=== PATIENT | male | born 1955 | race Two or more races ===

== ENCOUNTER → 2017-06-09 | Outpatient (CLI) | payer OTHER ==
[~2017-06-09] MED LIST: ASPI81TA3 PO; HYDR25TA6 PO
--- NOTE | 2017-06-09 16:29 | RADRPT ---
PROCEDURE: XR Knee. CLINICAL INDICATION: Left knee pain. TECHNIQUE: AP, lateral and oblique views of the left knee were obtained. The images reviewed on a PACS workstation. COMPARISON: None. FINDINGS: The bones appear intact, with no evidence of fracture, erosion, demineralization, or dislocation. T he alignment of the femorotibial and patellofemoral joints appears normal. No joint space narrowing is seen. No evidence of a joint effusion is seen. No soft tissue swelling is present. IMPRESSION: Unremarkable examination of the left knee. RPTAT: HPNM Physician Ibeth Date Time Electronically viewed and signed by Physician Ibeth on 06/09/2017 16:29 /
--- NOTE | 2017-06-09 21:30 | HKNOTE ---
DATE OF SERVICE: 06/09/2017 CHIEF COMPLAINT: Left knee pain. HISTORY OF PRESENT ILLNESS: This is a 61-year-old male who is complaining of pain in the left knee. He denies any history of trauma. He states that the pain is on the inside of the knee. He has oc casional locking and catching. He denies any instability. He has not had any previous treatment. He does not take any pain medications. He denies any groin or back pain. He has no other complaint s. GAIT: Nonantalgic gait, reciprocal gait pattern. LEFT KNEE EXAMINATION: Neutral alignment. Tender over the medial joint line, nontender over the la teral joint line. Negative Meeta, negative anterior drawer, negative posterior drawer. Positive Von's medially. MOTOR STRENGTH: 5/5 hamstrings, quadriceps, tibialis anterior, gastrocsoleus. IMAGING: MRI, left knee: There is a horizontal tear of the posterior horn and body of the medial m eniscus with associated meniscus cyst. The cruciate and collateral ligaments are intact. There is no tear identified in the lateral meniscus. IMPRESSION: A 61-year-old male with a left knee posterior horn medial meniscus tear. PLAN: We will request authorization for physical therapy of the left knee. He can take ibuprofen f or pain control. He will follow up with me as needed. Dictated By: PATT SAMUEL/EVELYNE Conf#: [id number] DID#: [id number]
== END | disposition home or self-care (01) ==
LOC: HKI 15:21
PROVIDERS: ATTEND Orthopaedic Surgery Adult Reconstructive Orthopaedic Surgery
DX: M23.222 Derangement of posterior horn of medial meniscus due to old tear or injury, left knee (principal)
CPT/HCPCS: 73564; Z7500; G0463

== ENCOUNTER 2018-12-13 15:14 | Emergency (ER) | payer MEDICARE, OTHER ==
[~2018-12-13] VITALS: Ht 165.1 cm; Wt 81.4 kg
[~2018-12-13 15:14] MED LIST changes: +ASPI-903 PO; -ASPI81TA3 PO
[2018-12-13 15:21] VITALS: BP 169/95; PULSE 71; RESP 18; Ht 165.1 cm; Wt 81.4 kg
[2018-12-13] MEDS ORDERED: ACETAMINOPHEN 500 MG TAB PO STA (15:33)
--- NOTE | 2018-12-13 15:39 | ERD ---
ER Documentation Chief Complaint Chief Complaint right thumb pain/injury , right ear pain HPI Patient is a 63-year-old male, past medical history of hypertension, presents the ER for concerns of right thumb pain/injury and right ear pain. Patient states yesterday he slammed his finger in the car door. His concern is that may be fractured. He is right-hand dominant. Patient denies any fevers or chills. Patient denies any numbness or tingling. Patient has also had intermittent right ear pain for the last 4 to 5 days. Patient denies any bleeding or drainage. ROS All systems reviewed and are negative except as per history of present illness. Medications Home Meds Active Scripts Ibuprofen* (Motrin*) 600 Mg Tab, 600 MG PO Q6, #30 TAB Prov:ROEL ORELLANA PA-C 12/13/18 Amoxicillin* (Amoxicillin*) 500 Mg Cap, 500 MG PO BID for 7 Days, CAP Prov:ROEL ORELLANA PA-C 12/13/18 Reported Medications Hydrochlorothiazide* (Hydrochlorothiazide*) 25 Mg Tab, 25 MG PO DAILY, TAB 03/18/15 Aspirin* (Aspirin* Chew) 81 Mg Tab.chew, 81 MG PO DAILY, TAB.CHEW 03/18/15 Allergies Allergies: Coded Allergies: No Known Allergy (Unverified , 03/18/15) PMhx/Soc History of Surgery: No Anesthesia Reaction: No Hx Neurological Disorder: No Hx Respiratory Disorders: No Hx Cardiac Disorders: Yes (HTN) Hx Psychiatric Problems: No Hx Miscellaneous Medical Probl: No Hx Alcohol Use: No Hx Substance Use: No Hx Tobacco Use: No FmHx Family History: No diabetes Physical Exam Vitals Vital Signs Date Temp Pulse Resp B/P (MAP) Pulse Ox O2 O2 Flow FiO2 Time Delivery Rate 12/13/18 98.0 71 18 169/95 95 15:21 (119) Physical Exam GENERAL: Well-developed, well-nourished male. Appears in no acute distress. Speaking in full sentences. HEAD: Normocephalic, atraumatic. EYES: Pupils are equally reactive bilaterally. EOMs grossly intact. No conjunctival erythema. ENT: Right TM appears erythematous, nonbulging. No mastoid tenderness noted bilaterally. Left TM appears normal. Moist mucous membranes. No uvula deviation. No kissing tonsils. NECK: Supple. No meningismus. Normal range of motion of the neck. LUNG: Clear to auscultation bilaterally. No rhonchi, wheezing, rales or coarse breath sounds. HEART: Regular rate and rhythm. No murmurs, rubs or gallops. EXTREMITIES: Equal pulses bilaterally. No peripheral clubbing, cyanosis or edema. No unilateral leg swelling. NEUROLOGIC: Alert and oriented. Moving all four extremities without any difficulty. Normal speech. Steady gait. SKIN: Parital Subungual hematoma noted to the right thumb. R thumb: Able to bend at ITP joint without any difficulty. Normal pulses. Results 24 hrs Current Medications Medications Dose Sig/Adriana Start Time Status Last (Trade) Ordered Route PRN Stop Time Admin Dose Reason Admin 1,000 mg ONCE STAT 12/13/18 DC 12/13/18 Acetaminophen PO 15:33 15:41 (Tylenol 12/13/18 15:34 Tab) Procedures/MDM ED COURSE: The patient was stable throughout ED course. I kept the patient and/or family informed of laboratory and diagnostic imaging results throughout the ED course. DIAGNOSTIC IMAGING: Read by radiologist. Patient: HELADIO MEZA : 1955 Age: 63 Sex: M MR #: [id number] DOS: 12/13/18 1533 Ordering MD: ROEL ORELLANA PA-C Location: [facility] Room/Bed: PROCEDURE: XR Finger. CLINICAL INDICATION: right thumb pain TECHNIQUE: Three views of the right thumb finger. COMPARISON: None. FINDINGS: No evidence of acute fracture or dislocation. Mild to moderate arthrosis at the thumb carpometacarpal and MCP joints with joint space narrowing and marginal osteophyte formation. Soft tissue swelling without foreign body. IMPRESSION: Soft tissue swelling without evidence of acute fracture. Mild to moderate degenerative joint disease. RPTAT:AAJJ Physician Adam Date Time Electronically viewed and signed by Physician Adam on 12/13/2018 15:58 RF/ CC: ROEL ORELLANA PA-C [id number] PROCEDURES: NAIL TREPANATION: The patient was verbally consented prior to procedure. Patient was explained the risks, benefits and alternatives to this procedure. Location: R thumb Preparation: The area was prepped in a sterile fashion using betadine x3 cleanses. A sterile field was prepared. Technique: Using hot cautery device, a small hole was placed on the nail plate. Dark red blood was evacuated from site. The patient tolerated the procedure well with no complications. The wound was dressed in sterile gauze. The patient was neurovascularly intact post-procedure. Post-procedural wound care was discussed with the patient. MEDICATIONS GIVEN: Tylenol Patient tolerated medication well with no adverse reactions. Patient reported improvement in pain. MEDICAL DECISION MAKING: Patient is a 63-year-old male with past medical history of hypertension presents the ER for concerns of right thumb injury as well as right ear pain.. Vital signs were reviewed. Patient is afebrile. Patient was not hypoxic. Patient was hemodynamically stable. On exam, patient is noted to have a partial subungual hematoma. Using hot cautery device, nail trephination was performed. See procedure note above. X- ray imaging was negative for acute fracture dislocation to the right thumb. Patient was also reporting ear pain. Patient will be discharged home with pre scription for amoxicillin for concerns of otitis media. Low suspicion for deep space infection, cellulitis, mastoiditis, TM rupture. Patient was nontoxic, [id number] prior to discharge. PRESCRIPTION: Amoxicillin, ibuprofen DISCHARGE: At this time, patient is stable for discharge and outpatient management. I have instructed the patient to follow-up with his/her primary care physician in 1-2 days. I have discussed with the patient the possibility of needing to see a specialist for further workup and imaging studies if symptoms persist. I have instructed the patient to promptly return to the ER for any new or worsening symptoms including increased pain, fever, nausea, vomiting, weakness or LOC. The patient and/or family expressed understanding of and agreement with this plan. All questions were answered. Home care instructions were provided. Patients blood pressure was elevated (>120/80) but appears stable without evidence of hypertensive emergency, hypertensive urgency or end-organ failure. I had discussion with the patient about the risks of hypertension. I have advised the patient to follow up with his/her primary care physician for outpatient monitoring and treatment for hypertension in 2-3 days. I have instructed the patient to return to the ER for any new or worsening symptoms including chest pain, shortness of breath, headache, blurred vision, confusion, nausea, vomiting or LOC. Disclaimer: Inadvertent spelling and grammatical errors are likely due to EHR/dictation software use and do not reflect on the overall quality of patient care. Also, please note that the electronic time recorded on this note does not necessarily reflect the actual time of the patient encounter. Departure Diagnosis: Primary Impression: Subungual hematoma Additional Impression: Otitis media Otitis media type: unspecified Chronicity: acute Qualified Codes: H66.90 - Otitis media, unspecified, unspecified ear Condition: Fair Patient Instructions: Otitis Media, Abx Tx (Adult) Referrals: [facility] YOU HAVE RECEIVED A MEDICAL SCREENING EXAM AND THE RESULTS INDICATE THAT YOU DO NOT HAVE A CONDITION THAT REQUIRES URGENT TREATMENT IN THE EMERGENCY DEPARTMENT. FURTHER EVALUATION AND TREATMENT OF YOUR CONDITION CAN WAIT UNTIL YOU ARE SEEN IN YOUR DOCTORS OFFICE WITHIN THE NEXT 1-2 DAYS. IT IS YOUR RESPONSIBILITY TO MAKE AN APPOINTMENT FOR FOLOW-UP CARE. IF YOU HAVE A PRIMARY DOCTOR --you should call your primary doctor and schedule an appointment IF YOU DO NOT HAVE A PRIMARY DOCTOR YOU CAN CALL OUR PHYSICIAN REFERRAL HOTLINE AT IF YOU CAN NOT AFFORD TO SEE A PHYSICIAN YOU CAN CHOSE FROM THE FOLLOWING [facility] [address] [facility]. [facility] [address] [facility]. [facility] [address] [facility] [facility] [address] [facility]. [facility] [address] [facility] [facility]. [address] [facility]. [facility] YOU HAVE RECEIVED A MEDICAL SCREENING EXAM AND THE RESULTS INDICATE THAT YOU DO NOT HAVE A CONDITION THAT REQUIRES URGENT TREATMENT IN THE EMERGENCY DEPARTMENT. FURTHER EVALUATION AND TREATMENT OF YOUR CONDITION CAN WAIT UNTIL YOU ARE SEEN IN YOUR DOCTORS OFFICE WITHIN THE NEXT 1-2 DAYS. IT IS YOUR RESPONSIBILITY TO MAKE AN APPOINTMENT FOR FOLOW-UP CARE. IF YOU HAVE A PRIMARY DOCTOR --you should call your primary doctor and schedule and appointment IF YOU DO NOT HAVE A PRIMARY DOCTOR YOU CAN CALL OUR PHYSICIAN REFERRAL HOTLINE AT . IF YOU CAN NOT AFFORD TO SEE A PHYSICIAN YOU CAN CHOSE FROM THE FOLLOWING [facility]: [facility] [address] [place] [address] [facility] [address] [place] [address] [facility] [address] [place] [address] Additional Instructions: Call your primary care doctor TOMORROW for an appointment during the next 1-2 days.See the doctor sooner or return here if your condition worsens before your appointment time. ROEL ORELLANA PA-C Dec 13, 2018 15:39
[2018-12-13] MEDS ORDERED: IBUP-1542 PO (16:59)
[2018-12-13] MEDS ORDERED: AMOX500C2 PO (16:59)
== END 2018-12-13 17:10 | disposition home or self-care (01) ==
LOC: FTE 15:14
DX: S60.111A Contusion of right thumb with damage to nail, initial encounter (principal); I10 Essential (primary) hypertension; H66.91 Otitis media, unspecified, right ear; W23.0XXA Caught, crushed, jammed, or pinched between moving objects, initial encounter; Y92.810 Car as the place of occurrence of the external cause; Z79.82 Long term (current) use of aspirin
CPT/HCPCS: 73140

== ENCOUNTER 2018-12-22 20:36 | Emergency (ER) | payer MEDICARE, OTHER ==
[~2018-12-22] VITALS: Ht 160 cm; Wt 82.1 kg
[~2018-12-22 20:36] MED LIST changes: +AMOX500C2 PO; +IBUP-1542 PO
[2018-12-22 20:37] VITALS: BP 168/97; PULSE 71; RESP 16; Ht 160 cm; Wt 82.1 kg
== END 2018-12-22 21:30 | disposition left against medical advice (07) ==
LOC: FTE 20:36
DX: Z53.21 Procedure and treatment not carried out due to patient leaving prior to being seen by health care provider (principal)

== ENCOUNTER 2018-12-25 07:47 | Emergency (ER) | payer MEDICARE, OTHER ==
[~2018-12-25] VITALS: Ht 170.2 cm; Wt 82.8 kg
[2018-12-25 07:54] VITALS: BP 165/77; PULSE 64; RESP 18; Ht 170.2 cm; Wt 82.8 kg
[2018-12-25] MEDS ORDERED: NICARDipine HCL 30 MG CAPSULE PO ONE (08:30)
[2018-12-25] MEDS ORDERED: AMOX1TAB10 PO (08:44)
--- NOTE | 2018-12-25 09:22 | ERD ---
ER Documentation Chief Complaint Chief Complaint epistaxis x 4 days, today it has been bleeding for 2 hours HPI Patient is a 63-year-old male with a history of hypertension who presents with nosebleed. The patient has had a nosebleed over the past 4 days off and on. Is coming from the right nares. He has had nosebleeds in the past the last being one year ago. He also has hypertension and takes amlodipine. He denies trauma. He has headache and dizziness as well. ROS All systems reviewed and are negative except as per history of present illness. Medications Home Meds Active Scripts Amoxicillin/Potassium Clav (Amox-Clav 875-125 mg Tablet) 875-125 mg Tab, 1 TAB PO BID for 7 Days, #14 TAB Prov:HOSSEIN JACKSON MD 12/25/18 Ibuprofen* (Motrin*) 600 Mg Tab, 600 MG PO Q6, #30 TAB Prov:ROEL ORELLANA PA-C 12/13/18 Amoxicillin* (Amoxicillin*) 500 Mg Cap, 500 MG PO BID for 7 Days, CAP Prov:ROEL ORELLANA PA-C 12/13/18 Reported Medications Hydrochlorothiazide* (Hydrochlorothiazide*) 25 Mg Tab, 25 MG PO DAILY, TAB 03/18/15 Aspirin* (Aspirin* Chew) 81 Mg Tab.chew, 81 MG PO DAILY, TAB.CHEW 03/18/15 Allergies Allergies: Coded Allergies: No Known Allergy (Unverified , 03/18/15) PMhx/Soc History of Surgery: No Anesthesia Reaction: No Hx Neurological Disorder: No Hx Respiratory Disorders: No Hx Cardiac Disorders: Yes (HTN) Hx Psychiatric Problems: No Hx Miscellaneous Medical Probl: No Hx Alcohol Use: Yes Hx Substance Use: No Hx Tobacco Use: No Smoking Status: Never smoker FmHx Family History: No diabetes Physical Exam Vitals Vital Signs Date Temp Pulse Resp B/P (MAP) Pulse Ox O2 O2 Flow FiO2 Time Delivery Rate 12/25/18 67 160/92 08:17 (114) 12/25/18 97.6 64 18 165/77 95 07:54 (106) Physical Exam Const: No acute distress Head: Atraumatic Eyes: Normal Conjunctiva ENT: Bleeding from the right nares Neck: Full range of motion. No meningismus. Resp: Clear to auscultation bilaterally Cardio: Regular rate and rhythm, no murmurs Abd: Soft, non tender, non distended. Normal bowel sounds Skin: No petechiae or rashes Back: No midline or flank tenderness Ext: No cyanosis, or edema Neur: Awake and alert Psych: Normal Mood and Affect Results 24 hrs Current Medications Medications Dose Sig/Adriana Start Time Status Last (Trade) Ordered Route PRN Stop Time Admin Dose Reason Admin Nicardipine 30 mg ONCE ONCE 12/25/18 DC 12/25/18 HCl PO 08:30 08:19 (Cardene) 12/25/18 08:31 Procedures/MDM Nasal packing procedure: The patient had a 5.5 cm anterior Rhino Rocket placed into the right nares. The Rhino Rocket was then filled with normal saline for tamponade. The patient tolerated the entire procedure. Patient is a 63-year-old male who presents with hypertension and anterior right- sided nosebleed. The patient had a nasal packing placed without difficulty. The nosebleed is stopped. Patient was given Cardene for hypertension. The patient went to follow-up with his primary doctor within 24 to 48 hours for nasal packing removal and could return to the ER if he cannot get an appointment with the primary doctor. The patient will be discharged and will be given a prescription for Augmentin to take while he still has nasal packing in place. He can return for any worsening symptoms. I believe this is an anterior nosebleed and not posterior. Departure Diagnosis: Primary Impression: HTN (hypertension) Hypertension type: essential hypertension Qualified Codes: I10 - Essential (primary) hypertension Additional Impression: Epistaxis Condition: Fair Patient Instructions: High Blood Pressure (Hypertension), Epistaxis (Adult) Referrals: Your doctor Additional Instructions: Llame al doctor MAANA y freedom dory SASCHA PARA DENTRO DE 1-2 STEVENS.Dgale a la se cretaria que nosotros le instruimos hacer esta sascha.Avise o llame si vora condicin se empeora antes de la sascha. Regresa aqui si peor o no mejor. HOSSEIN JACKSON MD Dec 25, 2018 09:22
== END 2018-12-25 08:52 | disposition home or self-care (01) ==
LOC: FTE 07:47
DX: I10 Essential (primary) hypertension (principal); Z79.82 Long term (current) use of aspirin